=== PATIENT | female | born 1950 | race Caucasian/White ===

== ENCOUNTER 2023-12-26 11:13 | Outpatient (CLI) | payer MEDICARE, BC, SELFPAY ==
[2023-12-26 11:50] LABS: Basophils Absolute Auto 0.1 K/mm3 (0.0-0.1); Basophils Percent Auto 0.8 % (0.2-1.2); Eosinophils Absolute Auto 0.2 K/mm3 (0-0.3); Eosinophils Percent Auto 2.1 % (0-4.4); Hematocrit 42.5 % (37.0-47.0); Hemoglobin 13.9 g/dL (12.0-15.0); Immature Granulocyte Absolute 0.04 K/mm3 (0.00-0.031); Immature Granulocyte Percent A 0.5 % (0-0.5); Lymphocytes Absolute Auto 1.73 K/mm3 (0.9-3.2); Lymphocytes Percent Auto 21.8 % (18.3-44.2); Mean Corpuscular HGB Conc 32.7 g/dl (32-36); Mean Corpuscular Volume 91.8 fl (80-100); Mean Platelet Volume 8.8 fl (7.4-10.4); Monocytes Absolute Auto 0.5 K/mm3 (0.1-0.6); Monocytes Percent Auto 5.9 % (2.6-8.5); Neutrophils Absolute Auto 5.5 K/mm3 (1.3-6.7); Neutrophils Percent Auto 68.9 % (45.5-73.1); Platelet Count Result 429 k/mm3 (150-375); Red Blood Count 4.63 M/mm3 (4.2-5.4); Red Cell Distribution Width 13.1 % (11.5-14.5); White Blood Count 7.9 K/mm3 (4.5-10.0)
[2023-12-26 14:02] LABS: Alanine Aminotransferase 23 U/L (6-35); Albumin Level 4.5 g/dL (3.5-5.1); Alkaline Phosphatase 79 U/L (38-126); Anion Gap 9 mmol/L (4-12); Aspartate Amino Transferase 34 U/L (14-36); Bilirubin,Total 0.6 mg/dL (0.2-1.3); Blood Urea Nitrogen 15 mg/dL (7-17); Calcium 9.4 mg/dL (8.4-10.2); Carbon Dioxide 29 mmol/L (22-30); Chloride 104 mmol/L (98-107); Estimated Glomerular Filt Rate 54; Glucose 104 mg/dL (65-110); Potassium 3.9 mmol/L (3.4-5.0); Sodium 142 mmol/L (137-145)
[2023-12-26 14:15] LABS: Iron 120 ug/dL (37-170)
[2023-12-26 14:25] LABS: Percent Iron Saturation 40 % (20-50)
== END 2023-12-26 11:14 | disposition home or self-care (01) ==
PROVIDERS: Internal Medicine; Visit Provider Internal Medicine Hematology & Oncology
DX: D75.838 Other thrombocytosis (principal); D64.9 Anemia, unspecified
CPT/HCPCS: 36415; 80053; 82728; 83540; 83550; 85025

== ENCOUNTER 2024-01-20 12:26 | Outpatient (CLI) | payer MEDICARE, BC, SELFPAY ==
[2024-01-20 12:51] LABS: Basophils Absolute Auto 0.1 K/mm3 (0.0-0.1); Basophils Percent Auto 0.8 % (0.2-1.2); Eosinophils Absolute Auto 0.3 K/mm3 (0-0.3); Eosinophils Percent Auto 3.1 % (0-4.4); Hematocrit 40.3 % (37.0-47.0); Hemoglobin 13.3 g/dL (12.0-15.0); Immature Granulocyte Absolute 0.05 K/mm3 (0.00-0.031); Immature Granulocyte Percent A 0.6 % (0-0.5); Lymphocytes Absolute Auto 1.91 K/mm3 (0.9-3.2); Lymphocytes Percent Auto 22.2 % (18.3-44.2); Mean Corpuscular Hemoglobin 30.4 pg (26-34); Mean Corpuscular Volume 92.2 fl (80-100); Monocytes Absolute Auto 0.5 K/mm3 (0.1-0.6); Monocytes Percent Auto 6.3 % (2.6-8.5); Neutrophils Absolute Auto 5.8 K/mm3 (1.3-6.7); Platelet Count Result 479 k/mm3 (150-375); Red Blood Count 4.37 M/mm3 (4.2-5.4); Red Cell Distribution Width 12.7 % (11.5-14.5); White Blood Count 8.6 K/mm3 (4.5-10.0)
[2024-01-20 16:40] LABS: Alanine Aminotransferase 20 U/L (6-35); Albumin Level 4.3 g/dL (3.5-5.1); Alkaline Phosphatase 77 U/L (38-126); Anion Gap 8 mmol/L (4-12); Aspartate Amino Transferase 79 U/L (14-36); Bilirubin,Total 0.7 mg/dL (0.2-1.3); Blood Urea Nitrogen 23 mg/dL (7-17); Calcium 9.6 mg/dL (8.4-10.2); Carbon Dioxide 29 mmol/L (22-30); Chloride 105 mmol/L (98-107); Estimated Glomerular Filt Rate 44; Glucose 96 mg/dL (65-110); Potassium 3.8 mmol/L (3.4-5.0); Sodium 142 mmol/L (137-145)
[2024-01-20 16:43] LABS: Iron 109 ug/dL (37-170)
[2024-01-20 16:54] LABS: Percent Iron Saturation 35 % (20-50)
== END 2024-01-20 12:27 | disposition home or self-care (01) ==
LOC: ANHLAB 12:27
PROVIDERS: Visit Provider Internal Medicine Hematology & Oncology
DX: D75.838 Other thrombocytosis (principal)
CPT/HCPCS: 36415; 80053; 82728; 83540; 83550; 85025

== ENCOUNTER 2024-01-21 15:44 | Outpatient (CLI) | payer MEDICARE, BC, SELFPAY ==
[2024-01-21 16:43] LABS: CRP 0.5 mg/dL (<1.0)
[2024-01-21 17:18] LABS: Erythrocyte Sedimentation Rate 12 mm/hr (0-20)
== END 2024-01-21 15:45 | disposition home or self-care (01) ==
LOC: ANHLAB 15:46
PROVIDERS: Visit Provider Internal Medicine Hematology & Oncology
DX: D75.838 Other thrombocytosis (principal); D47.3 Essential (hemorrhagic) thrombocythemia
CPT/HCPCS: 36415; 81270; 85652; 86140

== ENCOUNTER 2024-04-28 09:26 | Outpatient (CLI) | payer MEDICARE, BC, SELFPAY ==
[2024-04-28 09:37] LABS: Basophils Absolute Auto 0.1 K/mm3 (0.0-0.1); Basophils Percent Auto 1.2 % (0.2-1.2); Eosinophils Absolute Auto 0.2 K/mm3 (0-0.3); Eosinophils Percent Auto 3.4 % (0-4.4); Hematocrit 41.9 % (37.0-47.0); Hemoglobin 13.6 g/dL (12.0-15.0); Immature Granulocyte Absolute 0.02 K/mm3 (0.00-0.031); Immature Granulocyte Percent A 0.3 % (0-0.5); Lymphocytes Absolute Auto 1.94 K/mm3 (0.9-3.2); Lymphocytes Percent Auto 28.7 % (18.3-44.2); Mean Corpuscular HGB Conc 32.5 g/dl (32-36); Mean Corpuscular Hemoglobin 30.2 pg (26-34); Mean Corpuscular Volume 93.1 fl (80-100); Mean Platelet Volume 8.7 fl (7.4-10.4); Monocytes Absolute Auto 0.5 K/mm3 (0.1-0.6); Neutrophils Percent Auto 59.4 % (45.5-73.1); Platelet Count Result 425 k/mm3 (150-375); Red Cell Distribution Width 13.2 % (11.5-14.5); White Blood Count 6.8 K/mm3 (4.5-10.0)
[2024-04-28 10:10] LABS: Anion Gap 11 mmol/L (4-12); Blood Urea Nitrogen 20 mg/dL (7-17); Calcium 9.3 mg/dL (8.4-10.2); Carbon Dioxide 29 mmol/L (22-30); Chloride 103 mmol/L (98-107); Estimated Glomerular Filt Rate 52; Glucose 100 mg/dL (65-110); Sodium 143 mmol/L (137-145)
--- OUTSIDE RECORDS SUMMARY | 2024-04-28 10:17 | XMS_ITS | Clinical Summary ---
Author Organization [facility] Address [address] [place] [address] Care Team Providers Care Gaming Cage Cashier Name Role Phone Michel Mandujano MD Primary Care Provider [phone] Allergies Active Allergy Reactions Criticality Noted Date Comments Meloxicam Itching Low 12/16/2020 Morphine Nausea & Vomiting,Vomiting High 03/19/2017 Penicillins Hives Medium 03/19/2017 Raloxifene Rash Medium 12/16/2020 Sulfa (Sulfonamide Antibiotics) Shortness of breath,Vomiting High 03/19/2017 Medications aspirin 81 mg tablet Active potassium chloride ER (KLOR-CON 8) 8 mEq CR capsule Activ e lansoprazole (PREVACID) 30 mg capsule 08/29/19 18 Active lisinopril-hyd roCHLOROthiazi de (PRINZIDE,ZEST ORETIC) 20-25 mg per tabletIndicati ons:hypertensi on 10/22/19 18 Active cholecalcifero l (VITAMIN D3) 2,000 unit capsule Active cinnamon bark 500 mg capsule Take 1 capsule (500 mg total) by mouth daily Active omega 9-ybs-nzu-fish oil (FISH OIL) 1,000 mg (120 mg-180 mg) capsule daily Active bbbrezmt-hlk-a errous fumarate (MULTI VITAMIN) 9 mg iron/15 mL liquid Multi Vitamin QD Active acetaminophen- codeine (TYLENOL with CODEINE #3) 300-30 mg per tablet acetaminophen 300 mg-codeine 30 mg tablet Active triamcinolone (KENALOG) 0.1 % lotion triamcinolone acetonide 0.1 % lotion APPLY TOPICALLY TO AFFECTED AREA TWICE DAILY Active cyclobenzaprin e (FLEXERIL) 5 mg tablet cyclobenzaprine 5 mg tablet Active Active Problems Problem Noted Date Diagnosed Date History of breast cancer 11/18/2017 Surgical History Surgery Date Site/Laterality Comments BREAST LUMPECTOMY Medical History Medical History Date Comments Breast cancer (HCC) Social History Tobacco Use Types Packs/Day Years Used Date Smoking Tobacco: Never Smokeless Tobacco: Never Tobacco Cessation:Counseling Given: Not Answered Alcohol Use Standard Drinks/Week Comments No 0 (1 standard drink = 0.6 oz pur e alcohol) Comments No Sex and Gender Information Value Date Recorded Sex Assigned at Not on file Legal Sex Female 1:42 AM WILDLAND FIRE OPERATIONS SPECIALIST Gender Identity Not on file Sexual Orientation Not on file Obstetrics History Last Filed Vital Signs Vital Sign Reading Time Taken Comments Blood Pressure - - Pulse - - Temperature - - Respiratory Rate - - Oxygen Saturation - - Inhaled Oxygen Concentration - - Weight 81.6 kg (179 lb 14.3 oz) 01/04/2023 7:26 AM WILDLAND FIRE OPERATIONS SPECIALIST Height 162.6 cm (5' 4.02 ) 01/04/2023 7:26 AM CS T Body Mass Index 30.86 01/04/2023 7:26 AM WILDLAND FIRE OPERATIONS SPECIALIST Plan of Treatment Health Maintenance Due Date Last Done Comments Colon Cancer Screening-Colonoscopy 1948 Depression Screening 1948 Fall Risk Assessment 1948 Hepatitis C Screening 1948 Osteoporosis Screening-Bone Density Scan 1948 Hepatitis B Screening 1966 Zoster Vaccine (1 of 2) 1998 Well Visit 65+ 2013 Influenza Vaccine (#1) 2023 3, 11/18/2018, 11/25/2017, Additional history exists DTaP/Tdap/Td Vaccine (3 - Td or Tdap) 06/27/2028 06/27/2018, 06/27/2018 Pneumococcal vaccine 65+ Completed 01/27/2016, 07/19 Breast Cancer Screening-Mammogram Discontinued 01/07/2024, 01/04/2023, 12/22/2021, Additional history exists Procedures Procedure Name Priority Date/Time Associated Diagnosis Comments SCREENING MAMMOGRAM BILATERAL W [place] Schedule Routine, Read Routine (OP Routine) 01/07/2024 7:55 AM WILDLAND FIRE OPERATIONS SPECIALIST History of breast cancer from Last 3 Months or Most Recently Relevant to Health Maintenance Results * Screening Mammogram Bilateral W [place] (01/07/2024 7:55 AM WILDLAND FIRE OPERATIONS SPECIALIST) Anatomical Region Laterality Modality Breast Bilateral Mammography Narrative 01/08/2024 8:49 AM WILDLAND FIRE OPERATIONS SPECIALIST Mammogram Technique: Bilateral Digital Breast Tomosynthesis, Bilateral C-view 2D Screening mammogram. Views obtained: bilateral craniocaudal and bilateral mediolateral oblique. Computer Aided Detection was performed. Mammogram Findings: The present examination has been compared to prior imaging studies performed at [facility] on 12/16/2020, 12/22/2021 and 01/04/2023. There are scattered areas of fibroglandular density. There is no suspicious abnormality in either breast. Impression: There is no mammographic evidence of malignancy. Annual screening mammography is recommended. OVERALL FINAL ASSESSMENT: BI-RADS CATEGORY 1: Negative. Procedure Note Juanita Salinas MD - 01/08/2024 Mammogram Technique: Bilateral Digital Breast Tomosynthesis, Bilateral C-view 2D Screening mammogram. Views obtained: bilateral craniocaudal and bilateral mediolateral oblique. Computer Aided Detection was performed. Mammogram Findings: The present examination has been compared to prior imaging studies performed at [facility] on 12/16/2020, 12/22/2021 and 01/04/2023. There are scattered areas of fibroglandular density. There is no suspicious abnormality in either breast. Impression: There is no mammographic evidence of malignancy. Annual screening mammography is recommended. OVERALL FINAL ASSESSMENT: BI-RADS CATEGORY 1: Negative. Kristin Ferguson NP IMG MAMMO PROCEDURES Fin al Result from Last 3 Months or Most Recently Relevant to Health Maintenance Insurance [facility]ICARE [facility] FEDERAL MEDICARE [facility] MEDICARE [facility] Care Teams Gaming Cage Cashier Relationship Specialty Start Date End Date Michel Mandujano MD PCP - General 04/22/17
--- OUTSIDE RECORDS SUMMARY | 2024-04-28 10:17 | XMS_ITS | Encounter Summary ---
Author Organization [facility] Address [address] [place] [address] Care Team Providers Care Dorr Operator Name Role Phone Michel Mandujano MD Primary Care Provider [phone] Encounter Details Date Type Department Care Team (Late Contact Info) Description 04/25/2024 External Device Data [facility] ABSTRACTION Provider, Abstract NO ADDRESS ON FILE Social History Tobacco Use Types Packs/Day Years Used Date Smoking Tobacco: Never Smokeless Tobacco: Never Alcohol Use Standard Drinks/Week Comments Yes 0 (1 standard drink = 0.6 oz pur e alcohol) once or twice a year Comments No Sex and Gender Information Value Date Recorded Sex Assigned at Not on file Legal Sex Female 10:56 AM CDT Gender Identity Not on file Sexual Orientation Not on file documented as of this encounter Plan of Treatment Upcoming Encounters Date Type Department Care Team (Late Contact Info) Description 05/08/2024 12:45 PM CDT Office Visit [facility] Oncology and Hematology - Jerry [address] [address] Xavier Lopez MD [address] [facility] [address] [place] [address] documented as of this encounter Visit Diagnoses Not on filedocumented in this encounter Care Teams Dorr Operator Relationship Specialty Start Date End Date Michel Mandujano MD [address] [place] [address] PCP - General Internal Medicine 12/19/23 documented as of this encounter
--- OUTSIDE RECORDS SUMMARY | 2024-04-28 10:17 | XMS_ITS | Clinical Summary ---
Author Organization [facility] Address [address] [place] [address] Care Team Providers Care Seamstress Fitter Name Role Phone Michel Mandujano MD Primary Care Provider [phone] Allergies Active Allergy Reactions Criticality Noted Date Comments Meloxicam Itching Low 12/16/2020 Morphine Nausea and Vomiting Low 12/26/2023 Penicillins Hives High 03/19/2017 Raloxifene Rash Medium 12/16/2020 Sulfa (Sulfonamide Antibiotics) Shortness of Breath/Wheezing,Nausea and Vomiting High 03/19/2017 Medications amLODIPine (NORVASC) 5 mg tablet Take 1 Tablet by mouth daily. 10/06/2023 Active lansoprazole (PREVACID) 30 mg Capsule, Delayed Release(E.C.) Take 1 Capsule by mouth daily. 12/05/2023 Active lisinopriL (PRINIVIL) 20 mg tablet Take 1 Tablet by mouth 2 times daily. 12/04/2023 Active potassium chloride (KLOR-CON) 10 mEq Extended Release tablet Take 1 Tablet by mouth daily. 12/18/2023 Active TURMERIC ORAL Take by mouth. Active cholecalciferol, Vitamin D3, (VITAMIN D3) 25 mcg (1,000 unit) Capsule Take by mouth daily. Active omega-3 fatty acids (FISH OIL CONCENTRATE ORAL) Take by mouth. Active multivitamin (DAILY-INA) tablet Take 1 Tablet by mouth daily. Active aspirin (ECOTRIN EC) 81 mg Tablet, Delayed Release (E.C.) Take 81 mg by mouth daily. Active Active Problems No known active problems Encounters Date Type Department Care Team Description 04/25/2024 External Device Data ST[facility] ABSTRACTION Provider, Abstract 04/24/2024 External Device Data [facility] ABSTRACTION Provider, Abstract 04/22/2024 External Device Data [facility] ABSTRACTION Provider, Abstract 04/08/2024 External Device Data [facility] ABSTRACTION Provider, Abstract 03/18/2024 External Device Data [facility] ABSTRACTION Provider, Abstract 03/12/2024 External Device Data [facility] ABSTRACTION Provider, Abstract 02/04/2024 4:30 PM ASSET PROTECTION ASSOCIATE Telephone Check Up [facility] Oncology and Hematology [facility] [address] [place] [address] Xavier Lopez MD Secondary thrombocytosis (Primary Dx) 01/30/2024 Orders Only [facility] Oncology and Hematology [facility] [address] [place] [address] Xavier Lopez MD from Last 3 Months Family History Medical History Relation Name Comments No Known Problems Brother Diabetes Child 1 No Known Problems Child 2 No Known Problems Child 3 No Known Problems Child 4 No Known Problems Father Heart Disease Mother Diabetes Sister 1 Diabetes Sister 2 Relation Name Status Comments Brother Alive Child 1 Alive Child 2 Alive Child 3 Alive Child 4 Alive Father Mother Sister 1 Alive Sister 2 Alive Social History Tobacco Use Types Packs/Day Years Used Date Smoking Tobacco: Never Smokeless Tobacco: Never Tobacco Cessation:Counseling Given: Not Answered Alcohol Use Standard Drinks/Week Comments Yes 0 (1 standard drink = 0.6 oz pur e alcohol) once or twice a year Comments No Sex and Gender Information Value Date Recorded Sex Assigned at Not on file Legal Sex Female 10:56 AM CDT Gender Identity Not on file Sexual Orientation Not on file Last Filed Vital Signs Vital Sign Reading Time Taken Comments Blood Pressure 156/83 01/21/2024 3:23 PM ASSET PROTECTION ASSOCIATE Pulse 82 01/21/2024 3:21 PM ASSET PROTECTION ASSOCIATE Temperature 36.7 C (98 F) 01/21/2024 3:21 PM ASSET PROTECTION ASSOCIATE Respiratory Rate 16 01/21/2024 3:21 PM ASSET PROTECTION ASSOCIATE Oxygen Saturation 97% 01/21/2024 3:21 PM ASSET PROTECTION ASSOCIATE Inhaled Oxygen Concentration - - Weight 81.6 kg (179 lb 12.8 oz) 01/21/2024 3:21 PM ASSET PROTECTION ASSOCIATE Height 157.5 cm (5' 2 ) 12/26/2023 10:2 9 AM ASSET PROTECTION ASSOCIATE Body Mass Index 32.89 12/26/2023 10:29 AM ASSET PROTECTION ASSOCIATE Plan of Treatment Upcoming Encounters Date Type Department Care Team (Late st Contact Info) Description 05/08/2024 12:45 PM CDT Office Visit [facility] Oncology and Hematology - Jerry [address] [facility] [address] [place] [address] Xavier Lopez MD [address] [facility] [address] [place] [address] Health Maintenance Due Date Last Done Comments FIT-DNA Q 3 years 1993 FIT/FOBT Q 1 year 1993 Flex Sig/CT Colonography Q 5 years 1993 ZOSTER VACCINE (1 of 2) 1998 OSTEOPOROSIS SCREENING 2013 RSV VACCINE (60+ or ) (1 - 1-dose 75+ series) 06/30/2023 INFLUENZA VACCINE (#1) 2023 2, 12/02/2020, 11/17/2019, Additional history exists Traditional Medicare (ACO) A nnual Wellness Visit 10/28/2024 10/28/2023 COLORECTAL SCREENING 11/21/2026 11/21/2016 Colorectal Cancer Screening 11/21/2026 DTAP/TDAP/TD VACCINES (2 - T d or Tdap) 06/27/2028 06/27/2018, 06/27/2018 PNEUMOCOCCAL VACCINE 50+ YEARS Completed 01/27/2016 , 08/05/2013 Insurance MEDICARE PART A AND B [facility] FEDERAL Care Teams Seamstress Fitter Relationship Specialty Start Date End Date Michel Mandujano MD [address] [place] [phone] PCP - General Internal Medicine 12/19/23
--- OUTSIDE RECORDS SUMMARY | 2024-04-28 10:17 | XMS_ITS | Referral Summary ---
Author Organization [facility] Address [address] [place] [phone] Care Team Providers Care Engineering Mathematician Name Role Phone Michel Mandujano MD Primary Care Provider [phone] Allergies Active Allergy Reactions Criticality Noted Date [...] mg total) by mouth daily Active omega 4-roq-zzt-fish oil (FISH OIL) 1,000 mg (120 mg-180 mg) capsule daily Active zyeqcypk-tqo-p errous fumarate (MULTI VITAMIN) 9 mg iron/15 [...] Diagnosed Date History of breast cancer 11/18/2017 Social History Tobacco Use Types Packs/Day Years Used Date Smoking Tobacco: Never Smokeless Tobacco: Never Tobacco Cessation:Counseling Given: Not Answered Alcohol Use Standard Drinks/Week Comments No 0 (1 standard drink = 0.6 oz pur e alcohol) Comments No Sex and Gender Information Value Date Recorded Sex Assigned at Not on file Legal Sex Female 1:42 AM GLOBAL LOGISTICS MANAGER Gender Identity Not on file Sexual Orientation Not on file Last Filed Vital Signs Vital Sign Reading Time Taken Comments Blood Pressure - - Pulse - - Temperature - - Respiratory Rate - - Oxygen Saturation - - Inhaled Oxygen Concentration - - Weight 81.6 kg (179 lb 14.3 oz) 01/04/2023 7:26 AM GLOBAL LOGISTICS MANAGER Height 162.6 cm (5' 4.02 ) 01/04/2023 7:26 AM CS T Body Mass Index 30.86 01/04/2023 7:26 AM GLOBAL LOGISTICS MANAGER Plan of Treatment Not on file Procedures Procedure Name Priority Date/Time Associated Diagnosis Comments SCREENING MAMMOGRAM BILATERAL W [place] Schedule Routine, Read Routine (OP Routine) 01/07/2024 7:55 AM GLOBAL LOGISTICS MANAGER History of breast cancer from Last 3 Months or Most Recently Relevant to Health Maintenance Results * Screening Mammogram Bilateral W [place] (01/07/2024 7:55 AM GLOBAL LOGISTICS MANAGER) Anatomical Region Laterality Modality Breast Bilateral Mammography Narrative 01/08/2024 8:49 AM GLOBAL LOGISTICS MANAGER Mammogram Technique: Bilateral Digital Breast Tomosynthesis, Bilateral C-view 2D Screening mammogram. Views obtained: bilateral craniocaudal and bilateral mediolateral oblique. Computer Aided Detection was performed. Mammogram Findings: The present examination has been compared to prior imaging studies performed at [facility] on 12/16/2020, 12/22/2021 and 01/04/2023. There are [...] compared to prior imaging studies performed at [facility] on 12/16/2020, 12/22/2021 and 01/04/2023. There are scattered areas of fibroglandular density. There is no suspicious abnormality in either breast. Impression: There is no mammographic evidence of malignancy. Annual screening mammography is recommended. OVERALL FINAL ASSESSMENT: BI-RADS CATEGORY 1: Negative. Kristin Ferguson NP IMG MAMMO PROCEDURES Fin al Result from Last 3 Months or Most Recently Relevant to Health Maintenance Insurance MEDICARE [facility] MEDICARE [facility] MEDICARE [facility] FEDERAL Care Teams Engineering Mathematician Relationship Specialty Start Date End Date Michel Mandujano MD PCP - General 04/22/17
== END 2024-04-28 09:27 | disposition home or self-care (01) ==
PROVIDERS: Visit Provider Internal Medicine Hematology & Oncology
DX: D75.838 Other thrombocytosis (principal)
CPT/HCPCS: 36415; 80048; 85025

== ENCOUNTER 2024-11-10 10:04 | Outpatient (CLI) | payer MEDICARE, BC, SELFPAY ==
[2024-11-10 10:17] LABS: Hematocrit 41.9 % (37.0-47.0); Hemoglobin 13.4 g/dL (12.0-15.0); Immature Granulocyte Percent A 0.3 % (0-0.5); Lymphocytes Absolute Auto 1.63 K/mm3 (0.9-3.2); Mean Corpuscular HGB Conc 32.0 g/dl (32-36); Mean Corpuscular Hemoglobin 29.8 pg (26-34); Mean Corpuscular Volume 93.3 fl (80-100); Nucleated Red Blood Cells Absolute Auto 0.000 K/mm3 (0.0-0.012); Nucleated Red Blood Cells Perc 0.0 % (0.0-0.2); Platelet Count Result 440 k/mm3 (150-375); Red Blood Count 4.49 M/mm3 (4.2-5.4); White Blood Count 6.0 K/mm3 (4.5-10.0)
--- OUTSIDE RECORDS SUMMARY | 2024-11-10 10:57 | XMS_ITS | Clinical Summary ---
Author Organization [facility] Address [address] [place] [address] Care Team Providers Care Office Support Name Role Phone Michel Mandujano MD Primary Care Provider [phone] Allergies Active Allergy Reactions Criticality Noted Date [...] Encounters Date Type Department Care Team Description 11/03/2024 External Device Data [facility] ABSTRACTION Provider, Abstract 10/27/2024 External Device Data [facility] ABSTRACTION Provider, Abstract 10/07/2024 External Device Data [facility] ABSTRACTION Provider, Abstract 09/22/2024 External Device Data ST[facility] ABSTRACTION Provider, Abstract 09/02/2024 External Device Data ST[facility] ABSTRACTION Provider, Abstract 09/02/2024 External Device Data STL ABSTRACTION Provider, Abstract from Last 3 Months Family History Medical [...] Sign Reading Time Taken Comments Blood Pressure 151/78 05/08/2024 12:29 PM CDT Pulse 76 05/08/2024 12:27 PM CDT Temperature 36.6 C (97.9 F) 05/08/2024 12:27 PM CDT Respiratory Rate 15 05/08/2024 12:27 PM CDT Oxygen Saturation 92% 05/08/2024 12:27 PM CDT Inhaled Oxygen Concentration - - Weight 79.7 kg (175 lb 9.6 oz) 05/08/2024 12:27 PM CDT Height 157.5 cm (5' 2) 12/26/2023 10:29 AM COST RECORDER Body Mass Index 32.12 12/26/2023 10:29 AM COST RECORDER Plan of Treatment Upcoming Encounters Date Type Department Care Team (Late st Contact Info) Description 11/13/2024 11:15 AM CDT Office Visit [facility] Oncology and Hematology - Jerry [address] [facility] [address] [place] [address] Xavier Lopez MD [address] [facility] [address] [place] [address] Health Maintenance Due Date Last Done Comments ZOSTER VACCINE (1 of 2) 1998 RSV VACCINE (60+ or ) (1 - 1-dose 75+ series) 06/30/2023 INFLUENZA VACCINE (#1) 2024 2, 12/02/2020, 11/17/2019, Additional history exists Traditional Medicare (ACO) A nnual Wellness Visit 10/28/2024 10/28/2023 OSTEOPOROSIS SCREENING 03/14/2028 4, 09/23/2020, 07/15/2018 DTAP/TDAP/TD VACCINES (2 - T d or Tdap) 06/27/2028 06/27/2018, 06/27/2018 PNEUMOCOCCAL VACCINE 50+ YEARS Completed 01/27/2016 , 08/05/2013 COLORECTAL SCREENING Discontinued 03/14/2022, 03/14/2022, 11/21/2016 Colorectal Cancer Screening Discontinued FIT-DNA Q 3 years Discontinued FIT/FOBT Q 1 year Discontinued Flex Sig/CT Colonography Q 5 years Discontinued Insurance MEDICARE PART A AND B [facility] FEDERAL Care Teams Office Support Relationship Specialty Start Date End Date Michel Mandujano MD [address] [place] [phone] PCP - General Internal Medicine 12/19/23
--- OUTSIDE RECORDS SUMMARY | 2024-11-10 10:57 | XMS_ITS | Clinical Summary ---
Author Organization [facility] Address [address] [place] [address] Care Team Providers Care Frog Or Oyster Farmworker Name Role Phone Michel Mandujano MD Primary Care Provider [phone] Allergies Active Allergy Reactions Criticality Noted Date [...] mg total) by mouth daily Active omega 7-rgu-ozk-fish oil (FISH OIL) 1,000 mg (120 mg-180 mg) capsule daily Active afmukdcq-hqd-j errous fumarate (MULTI VITAMIN) 9 mg iron/15 [...] on file Legal Sex Female 1:42 AM CASTING CHIPPER Gender Identity Not on file Sexual Orientation Not on file Obstetrics History Last Filed Vital Signs Vital Sign Reading Time Taken Comments Blood Pressure - - Pulse - - Temperature - - Respiratory Rate - - Oxygen Saturation - - Inhaled Oxygen Concentration - - Weight 81.6 kg (179 lb 14.3 oz) 01/04/2023 7:26 AM CASTING CHIPPER Height 162.6 cm (5' 4.02) 01/04/2023 7:26 AM CS T Body Mass Index 30.86 01/04/2023 7:26 AM CASTING CHIPPER Plan of Treatment Health Maintenance Due Date Last Done Comments Depression Screening 1948 Fall Risk Assessment 1948 Hepatitis C Screening 1948 Osteoporosis Screening-Bone Density Scan 1948 Hepatitis B Screening 1966 Zoster Vaccine (1 of 2) 1998 Well Visit 65+ 2013 Influenza Vaccine (#1) 2024 3, 11/18/2018, 11/25/2017, Additional history exists DTaP/Tdap/Td Vaccine (3 - Td or Tdap) 06/27/2028 06/27/2018, 06/27/2018 Pneumococcal vaccine 65+ Completed 01/27/2016, 07/19 Breast Cancer Screening-Mammogram Discontinued 01/07/2024, 01/04/2023, 12/22/2021, Additional history exists Procedures Procedure Name Priority Date/Time Associated Diagnosis Comments SCREENING MAMMOGRAM BILATERAL W [place] Schedule Routine, Read Routine (OP Routine) 01/07/2024 7:55 AM CASTING CHIPPER History of breast cancer from Last 3 Months or Most Recently Relevant to Health Maintenance Results * Screening Mammogram Bilateral W [place] (01/07/2024 7:55 AM CASTING CHIPPER) Anatomical Region Laterality Modality Breast Bilateral Mammography Narrative 01/08/2024 8:49 AM CASTING CHIPPER Mammogram Technique: Bilateral Digital Breast Tomosynthesis, Bilateral [...] Recently Relevant to Health Maintenance Insurance MEDICARE [facility] MEDICARE [facility] MEDICARE [facility] FEDERAL [facility] Address: [address] [place] [phone] Care Teams Frog Or Oyster Farmworker Relationship Specialty Start Date End Date Michel Mandujano MD PCP - General 04/22/17
[2024-11-10 10:58] LABS: Anion Gap 10 mmol/L (4-12); Blood Urea Nitrogen 19 mg/dL (7-17); Calcium 9.1 mg/dL (8.4-10.2); Carbon Dioxide 26 mmol/L (22-30); Chloride 104 mmol/L (98-107); Estimated Glomerular Filt Rate 56; Glucose 104 mg/dL (65-110); Potassium 4.2 mmol/L (3.4-5.0); Sodium 140 mmol/L (137-145)
== END 2024-11-10 10:05 | disposition home or self-care (01) ==
LOC: ANHLAB 10:05
PROVIDERS: Visit Provider Internal Medicine Hematology & Oncology
DX: D75.838 Other thrombocytosis (principal)
CPT/HCPCS: 36415; 80048; 85025